=== PATIENT | male | born 1970 | race Caucasian/White ===

== ENCOUNTER 2019-05-24 11:39 | Emergency (ER) | payer OTHER, SELFPAY ==
--- NOTE | ~2019-05-24 | CT_ITS ---
EXAMINATION: CT abdomen pelvis w con DATE: 05/24/2019 13:46 INDICATION: Severe abdominal pain. Hematochezia. TECHNIQUE: Computed tomography (CT) of the abdomen and pelvis was performed with 100 cc Omnipaque 350 intravenous contrast. Automated exposure control and iterative reconstruction technique were employe d. Exam dose: 1472.06 mGy-cm total exam DLP. COMPARISON: None. FINDINGS: The lung bases are clear. Normal heart size. No pericardial or pleural effusion. Diffuse hepatic steatosis. Status post cholecystectomy. No bile duct or pancreatic duct dilatation. No hepatic, pancreatic, splenic, and adrenal space-occupying mass lesion is detected. The There is a small posterior upper pole right renal cyst or scar. No other renal mass lesion is evident . There is an approximately 2-3 mm nonobstructing left renal calculus. No other urinary tract calculus or hydroureteronephrosis. There is moderate diffuse thickening of the urinary bladder wall. There is moderate prostate enlargem ent and minimal calcification. There are small bilateral fat-containing inguinal hernias, larger on the left. Normal appendix. Minimal colonic diverticulosis. No CT evidence of diverticulitis. No bowel obstructi on. No intraperitoneal free air. Normal caliber of the abdominal aorta. No intraperitoneal or retroperitoneal or pelvic mass lesion or adenopathy or ascites. Diffuse idiopathic hyperostosis of the thoracic spine. No suspicious osteolytic or osteoblastic lesio ns. 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 IMPRESSION: Hepatic steatosis Status post cholecystectomy Small upper pole right renal cyst or scar 2-3 mm left renal nonobstructing calculus Minimal colonic diverticulosis Reviewed, dictated and finalized at [facility]. Reviewed, dictated and finalized at [facility]. 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
[2019-05-24 11:42] VITALS: BP 175/98; PULSE 65; RESP 16; TEMP 36.4; O2SAT 98
[2019-05-24 12:09] LABS: Basophils Percent Auto 0.3 % (0.2-1.2); Eosinophils Absolute Auto 0.1 K/mm3 (0-0.3); Eosinophils Percent Auto 2.1 % (0-4.4); Hematocrit 45.6 % (42.0-52.0); Hemoglobin 15.8 g/dL (14.0-18.0); Immature Granulocyte Absolute 0.02 K/mm3 (0.00-0.031); Immature Granulocyte Percent A 0.3 % (0-0.5); Lymphocytes Absolute Auto 2.04 K/mm3 (0.9-3.2); Lymphocytes Percent Auto 32.5 % (18.3-44.2); Mean Corpuscular HGB Conc 34.6 g/dl (32-36); Mean Corpuscular Volume 86.5 fl (80-100); Mean Platelet Volume 8.7 fl (7.4-10.4); Monocytes Absolute Auto 0.6 K/mm3 (0.1-0.6); Monocytes Percent Auto 8.8 % (2.6-8.5); Neutrophils Absolute Auto 3.5 K/mm3 (1.3-6.7); Platelet Count Result 226 k/mm3 (150-375); Red Blood Count 5.27 M/mm3 (4.6-6.20); Red Cell Distribution Width 12.3 % (11.5-14.5); White Blood Count 6.3 K/mm3 (4.5-10.0)
[2019-05-24 12:23] LABS: Alanine Aminotransferase 61 U/L (4-50); Albumin Level 4.7 g/dL (3.5-5.1); Alkaline Phosphatase 75 U/L (38-126); Aspartate Amino Transferase 50 U/L (17-59); Bilirubin,Total 0.9 mg/dL (0.2-1.3); Blood Urea Nitrogen 15 mg/dL (9-20); Calcium 9.6 mg/dL (8.4-10.2); Carbon Dioxide 26 mmol/L (22-30); Chloride 100 mmol/L (98-107); Estimated CRCL calculation 159 ml/min; Estimated Glomerular Filt Rate > 60; Glucose 96 mg/dL (75-110); INR 0.9; Partial Thromboplastin Time 26.4 SECONDS (22.3-36.8); Prothrombin Time 11.9 Seconds (11.1-14.7); Sodium 140 mmol/L (137-145)
[2019-05-24] MEDS: LACTATED RINGERS 1,000 ML 999 ML IV CONT (12:45)
[2019-05-24] MEDS: DICYCLOMINE HCL INJ 20 MG/2 ML VIAL IM (12:45)
--- NOTE | 2019-05-24 12:46 | ED.GIBLEED ---
HPI - GI Bleed General Chief complaint: GI Bleed Stated complaint: severe abd pains/ blood in stool Time Seen by Provider: 05/24/19 12:33 Source: patient and RN notes reviewed Mode of arrival: ambulatory Limitations: no limitations History of Present Illness HPI Narrative: A 48 y/o male presents to the ED with rectal bleeding beginning yesterday morning. He states that shortly after he ate breakfast yesterday he began to have severe, constant, rt ABD pain and bloody diarrhea. He reports that he then began to pass only blood and mucus, so he decided to come to the ED. He notes that his ABD pain has localized in his RLQ . He also notes that he was recently dx with bronchitis and finished a Z-pac roughly 2 weeks ago. He denies any fevers, chills, SOB, CP, N/V, and any other medical complaints at this time. MD complaint: gross hematochezia (with mucus) Onset (ago): day(s) (yesterday) Pain Consistency: constant Severity: severe Associated symptoms: abdominal pain (RLQ) Related Data Home Medications Medication Instructions Recorded Confirmed ezetimibe 10 mg tablet 10 mg PO DAILY 02/27/19 pravastatin 20 mg tablet 20 mg PO DAILY 02/27/19 Allergies Allergy/AdvReac Type Severity Reaction Status Date / Time No Known Allergies Allergy Verified 05/24/19 11:40 Review of Systems Review of Systems: All systems reviewed & are unremarkable except as noted in HPI and below Constitutional: Constitutional: Denies chills, Denies fatigue, Denies fever(s), Denies headache(s) and Denies night sweats Eyes: Eyes: Denies change in vision, Denies loss of vision and Denies other visual disturbances ENT: Denies headache(s), Denies hoarseness, Denies epistaxis, Denies nasal congestion and Denies sore throat Cardiovascular: Cardiovascular: Denies chest pain, Denies leg edema, Denies palpitations and Denies dyspnea Respiratory: Respiratory: Denies cough, Denies dyspnea and Denies wheezing Gastrointestinal: Gastrointestinal: Reports abdominal pain (RLQ), Reports hematochezia (with mucus), Reports diarrhea, Denies nausea and Denies vomiting Genitourinary: Genitourinary: Denies hematuria, Denies dysuria and Denies urinary frequency Musculoskeletal: Musculoskeletal: Denies abnormal gait, Denies deformity, Denies joint swelling, Denies muscle weakness and Denies numbness Integumentary/Breasts: Skin/Breast: Denies rash, Denies unusual bruising and Denies wounds Neurologic: Denies abnormal gait, Denies headache(s), Denies focal weakness, Denies loss of vision and Denies numbness Psychiatric: Psychiatric: Reports no additional psychiatric complaints Endocrine: Endocrine: Denies fatigue and Denies palpitations Hematologic/Lymphatic: Hematologic/Lymphatic: Denies easy bleeding and Denies easy bruising Allergic/Immunologic: Allergic/Immunologic: Denies wheezing PMFSH Past Medical History Medical History (Updated 05/24/19 @ 15:17 by Prashant Pickard MD) Arthritis Bronchitis Elbow fracture, left History of Fonseca's esophagus History of kidney stones Hypercholesteremia IBS (irritable bowel syndrome) IFG (impaired fasting glucose) Right wrist fracture Surgical History Surgical History (Updated 05/24/19 @ 14:26 by Ronan Prather) History of cholecystectomy History of tonsillectomy Family History Family History Mother Family history of mental disorder Family history of elevated blood lipids Father Family history of elevated blood lipids Family history of malignant neoplasm Family history of human immunodeficiency virus infection Other Cerebrovascular accident Social History Social History Smoking status: Former smoker Tobacco type: cigarettes Second hand tobacco smoke exposure: No Alcohol intake: current Drinks per week: 1 Substance use: never Substance use type: does not use Gender identity (if verbalized by the patient): Male
[2019-05-24 12:52] LABS: Add Urine Microscopic? YES; Appearance Urine Clear (Clear); Bilirubin Urine Negative (Negative); Blood Urine Negative (Negative); Color Urine Yellow (Yellow); Glucose Urine UA Negative (Negative); Ketones Urine Negative (Negative); Leukocyte Esterase Ur Negative LEU/UL (Negative); Mucus Urine Rare /lpf; Nitrate Urine Negative (Negative); Protein Urine Negative (Negative); Urobilinogen Urine Negative mg/dL (<2.0); WBC Urine 0-3 /hpf
[2019-05-24 13:30] VITALS: PULSE 64; RESP 25; O2SAT 98
[2019-05-24 14:15] VITALS: PULSE 68; RESP 17; O2SAT 98
[2019-05-24 14:17] VITALS: BP 134/67; PULSE 61; RESP 16; O2SAT 96
[2019-05-24 15:21] VITALS: PULSE 59; RESP 18; O2SAT 94
[2019-05-24 15:30] VITALS: PULSE 73; RESP 13; O2SAT 94
--- NOTE | 2019-05-27 19:24 | PC.NURSE ---
lr bolus infused at 1345 on 05/24/19
== END 2019-05-24 15:51 | disposition home or self-care (01) ==
PROVIDERS: Emergency Medicine; Emergency Provider Emergency Medicine; PCP Family Medicine
DX: R19.7 Diarrhea, unspecified (principal); K92.1 Melena; M19.90 Unspecified osteoarthritis, unspecified site; Z87.442 Personal history of urinary calculi; E78.00 Pure hypercholesterolemia, unspecified; Z87.891 Personal history of nicotine dependence
CPT/HCPCS: 36415; 74177; 80053; 81001; 85025; 85610; 85730; 86850; 86900; 86901; 96360; 96372; 99284; J0500; J7120; Q9967

== ENCOUNTER 2019-06-05 02:53 | Day surgery (SDC) | payer OTHER, SELFPAY ==
[2019-05-29 15:05] VITALS: BMI 35.8
[2019-06-05 07:00] VITALS: BP 132/79; PULSE 66; RESP 20; TEMP 36.3; O2SAT 95
--- NOTE | 2019-06-05 07:45 | WPDANESEPPF ---
Anes - Initial Pre Proc Eval Procedure: Operation Date: 06/05/19 08:00 Proposed Procedures p Esophagogastroduodenoscopy & Colonoscopy - Prashant Herrera MD Date/Time: 06/05/19 07:45 Surgeon: Prashant Herrera MD Pre Op Diagnosis: Rectal Bleeding/ Lower GI Bleeding Patient Data Age: 48 Gender: M Height: 6 ft 3 in Weight: 127.8 kg Last Vital Signs Temp 36.3 C L 06/05/19 07:00 Pulse 66 06/05/19 07:00 Resp 20 06/05/19 07:00 BP 132/79 06/05/19 07:00 Pulse Ox 95 06/05/19 07:00 Allergies Allergy/AdvReac Type Severity Reaction Status Date / Time No Known Allergies Allergy Verified 06/05/19 06:58 Home Medications Medication Instructions Recorded Confirmed Type ezetimibe 10 mg tablet 10 mg PO DAILY 02/27/19 05/29/19 History pravastatin 20 mg tablet 20 mg PO DAILY 02/27/19 05/29/19 History celecoxib 200 mg capsule 200 mg PO DAILY PRN #90 cap 03/02/19 05/29/19 Rx esomeprazole magnesium 40 mg 40 mg PO DAILY #90 cap 03/30/19 05/29/19 Rx capsule,delayed release ascorbic acid (vitamin C) [Vitamin 1 g PO DAILY 05/29/19 05/29/19 History C] multivit with min-folic acid 0.4 mg PO DAILY 05/29/19 05/29/19 History [Adult One Daily Multivitamin] psyllium husk [Daily Fiber] 0.4 g PO DAILY 05/29/19 05/29/19 History Patient hx anesthesia problems: none Family hx anesthesia problems: none PMFSH Past Medical History Medical History Arthritis Bronchitis Elbow fracture, left History of Fonseca's esophagus History of kidney stones Hypercholesteremia IBS (irritable bowel syndrome) IFG (impaired fasting glucose) Right wrist fracture Surgical History Surgical History History of cholecystectomy History of tonsillectomy Family History Family History Mother Family history of mental disorder Family history of elevated blood lipids Father Family history of elevated blood lipids Family history of malignant neoplasm Family history of human immunodeficiency virus infection Other Cerebrovascular accident Social History Social History Smoking status: Former smoker Tobacco type: cigarettes Second hand tobacco smoke exposure: No Alcohol intake: current Drinks per week: 1 Substance use: never Substance use type: does not use Gender identity (if verbalized by the patient): Male Anes - Eval Final PreProcedure Day of Procedure 06/05/19 07:45 Patient weight: obese Heart: regular rate and rhythm Lungs: clear to auscultation Airway: Mallampati scale class II Neurological: alert and oriented Last oral intake: >/= 8 hours ASA classification: II Emergent: no Anesthetic plan: proceed Anesthesia type and monitoring: general GIVS and standard monitoring Informed Consent: The patient's anesthetic plan and its attendant risks and benefits were discussed with the patient/family/POA. Questions were solicited and answers provided to the satisfaction of the patient/family/POA.
[2019-06-05] MEDS: BENZOCAINE (*SP) 60 ML SPRAY CAN (HURRICAINE) 1 SPRAY MUCOUS MEM (08:23)
--- NOTE | 2019-06-05 08:30 | WPDGICN ---
Assessment and Plan Additional Plan This is a 48-year-old white male patient who presents for GI endoscopy. Patient seen at the request of Dr. Vignesh Montague. Patient complains of ongoing right-sided abdominal pain. Patient gives a history of cholecystectomy in 2007 at [facility]. Apparently had an inflamed gallbladder. Since that time he has ongoing right-sided abdominal discomfort. Etiology unclear. He was identified as having Fonseca's esophagus several years ago. No signs of inflammation more evident. He has been maintained on Nexium 40 mg p.o. daily subsequently. Patient denies any bleeding. He denies any dysphagia. His weight has remained stable. Three weeks ago patient had episode of bright red blood per rectum associated with intense abdominal cramping. He went to the emergency room for treatment. Was treated with antispasmodic agents. These bleeding only occurred on 1 day. His cramping improved after several days. He continues to have right-sided abdominal discomfort similar for many years. Past medical history is significant for kidney stones. Irritable bowel syndrome. Fonseca's esophagus. Hypercholesterolemia. Current medications include Nexium 40 mg p.o. daily. Celecoxib. Ezetimibe, pravastatin, Metamucil, multiple vitamins, He has no known drug allergies. Physical exam reveals him to be alert. Vital signs stable. HEENT exam unremarkable. Lungs are clear to auscultation and percussion. Heart is without murmur or extra sounds. Abdominal exam bowel sounds are present soft nontender with no organomegaly. Digital external rectal exam unremarkable. Impression 1. Fonseca's esophagus. Clinically stable. Plan is to continue proton pump inhibitor. Anti-reflux measures. EGD every 3 years is advised. 2. Chronic right-sided abdominal pain. Etiology unclear. Suspicious for irritable bowel syndrome. Plan is to continue fiber supplements. Antispasmodics may be of some benefit intermittently. 3. Status post cholecystectomy. Performed 2007 at [facility]. 4. Rectal bleeding. Now resolved. This prompted presentation to the emergency room. Will be evaluated by colonoscopy. 5. Irritable bowel syndrome. Suspicious this accounts for his ongoing symptoms plan is to continue fiber and antispasmodics. GI Consult Note Consult date/time: 06/05/19 08:30 HPI: Giuseppe Gonzalez is a 48 year old male [facility] Past Medical History Medical History Arthritis Bronchitis Elbow fracture, left History of Fonseca's esophagus History of kidney stones Hypercholesteremia IBS (irritable bowel syndrome) IFG (impaired fasting glucose) Right wrist fracture Surgical History Surgical History History of cholecystectomy History of tonsillectomy Family History Family History Mother Family history of mental disorder Family history of elevated blood lipids Father Family history of elevated blood lipids Family history of malignant neoplasm Family history of human immunodeficiency virus infection Other Cerebrovascular accident Social History Social History Smoking status: Former smoker Tobacco type: cigarettes Second hand tobacco smoke exposure: No Alcohol intake: current Drinks per week: 1 Substance use: never Substance use type: does not use Gender identity (if verbalized by the patient): Male Meds Home Medications and Allergies Home Medications Medication Instructions Recorded Confirmed Type ezetimibe 10 mg tablet 10 mg PO DAILY 02/27/19 05/29/19 History pravastatin 20 mg tablet 20 mg PO DAILY 02/27/19 05/29/19 History celecoxib 200 mg capsule 200 mg PO DAILY PRN #90 cap 03/02/19 05/29/19 Rx esomeprazole magnesium 40 mg 40 mg PO DAILY #90 cap 03/30/19 05/29/19 Rx capsule,delayed releas
[2019-06-05 08:56] VITALS: BP 115/63; PULSE 71; RESP 20; O2SAT 94
[2019-06-05] MEDS: LACTATED RINGERS 1,000 ML 150 ML IV CONT (09:00)
[2019-06-05 09:06] VITALS: BP 128/84; PULSE 67; RESP 18; O2SAT 91
[2019-06-05 09:16] VITALS: BP 127/76; PULSE 68; RESP 18; O2SAT 93
== END 2019-06-05 09:33 | disposition home or self-care (01) ==
PROVIDERS: PCP Family Medicine; Visit Provider Internal Medicine Gastroenterology
PROC: 0DJ08ZZ Inspection of Upper Intestinal Tract, Via Natural or Artificial Opening Endoscopic (ICD-10-PCS; CPT 43235; principal; 2019-06-05 08:00)
DX: K22.70 Barrett's esophagus without dysplasia (principal); D12.5 Benign neoplasm of sigmoid colon; K57.30 Diverticulosis of large intestine without perforation or abscess without bleeding; K64.8 Other hemorrhoids; K58.9 Irritable bowel syndrome, unspecified; E78.00 Pure hypercholesterolemia, unspecified; Z87.891 Personal history of nicotine dependence
CPT/HCPCS: 45385; 43239; 87081; 88305; 88313; J2704; J7120

== ENCOUNTER 2021-04-24 17:38 | Outpatient (CLI) | payer OTHER, SELFPAY ==
--- NOTE | ~2021-04-24 | XR_ITS ---
EXAMINATION: XR_CERV2-3V_CR DATE: 04/24/2021 18:00 INDICATION: Cervical radiculopathy. TECHNIQUE: 3 views of cervical spine were obtained. COMPARISON: None. FINDINGS: Bone alignment is normal. Vertebral body heights are normal. There is moderately decreased disc height at C6-C7. There is multilevel facet joint osteoarthritis, severe on the right at C4-C5. T here is mild central canal stenosis at C6-C7. No prevertebral soft tissue swelling. IMPRESSION: 1. Moderate cervical spondylosis. Reviewed, dictated and finalized at location [facility]. 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
== END 2021-04-24 17:39 | disposition home or self-care (01) ==
PROVIDERS: PCP Family Medicine; Visit Provider Family Medicine
DX: M47.22 Other spondylosis with radiculopathy, cervical region (principal)
CPT/HCPCS: 72040

== ENCOUNTER 2021-05-12 13:43 | Outpatient (CLI) | payer OTHER, SELFPAY ==
--- NOTE | ~2021-05-12 | MR_ITS ---
EXAMINATION: MR cervical spine wo con DATE: 05/12/2021 15:04 INDICATION: Cervical radiculopathy. TECHNIQUE: Magnetic resonance imaging (MRI) of the cervical spine was performed without intravenous c ontrast. Sequences included sagittal T2-weighted FSE, sagittal T2-weighted FS FSE, sagittal T1-weight ed FSE, axial MERGE, and axial T2-weighted FSE. COMPARISON: Cervical spine radiographs 04/24/2021 FINDINGS: There is 4 degrees levocurvature of cervicothoracic spine. Vertebral body heights are rajendra l. Intervertebral disc heights are normal. The spinal cord signal intensity is normal. The following disc levels are specifically discussed: C2-C3: The disc does not extend beyond the endplate margin. There is no uncovertebral joint osteoarth ritis. There is moderate bilateral facet joint osteoarthritis. There is no neural foraminal stenosis. There is no central canal stenosis. C3-C4: There is a central extrusion. There is mild bilateral uncovertebral joint osteoarthritis. Ther e is moderate bilateral facet joint osteoarthritis. There is mild left neural foraminal stenosis. The re is mild central canal stenosis with ventral indentation of the spinal cord. C4-C5: The disc is bulging. There is moderate bilateral uncovertebral joint osteoarthritis. There is severe right and moderate left facet joint osteoarthritis. There is moderate bilateral neural foramin al stenosis. There is mild central canal stenosis. C5-C6: The disc is bulging. There is mild right and moderate left uncovertebral joint osteoarthritis. There is severe bilateral facet joint osteoarthritis. There is mild right and moderate left neural f oraminal stenosis. There is mild central canal stenosis. C6-C7: The disc is bulging. There is severe bilateral uncovertebral joint osteoarthritis. There is mo derate right and severe left facet joint osteoarthritis. There is moderate bilateral neural foraminal stenosis. There is mild central canal stenosis. C7-T1: There is a left central extrusion. There is no uncovertebral joint osteoarthritis. There is mi ld bilateral facet joint osteoarthritis. There is mild bilateral neural foraminal stenosis. There is no central canal stenosis. IMPRESSION: 1. Moderate cervical spondylosis. Reviewed, dictated and finalized at location [facility]. 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
== END 2021-05-12 13:44 | disposition home or self-care (01) ==
PROVIDERS: PCP Family Medicine; Visit Provider Family Medicine
DX: M47.812 Spondylosis without myelopathy or radiculopathy, cervical region (principal)
CPT/HCPCS: 72141

== ENCOUNTER 2022-06-05 16:36 | Emergency (ER) | payer OTHER, SELFPAY ==
[2022-06-05 16:44] VITALS: BP 145/89; PULSE 70; RESP 16; TEMP 36.3; O2SAT 98
--- NOTE | 2022-06-05 16:57 | ED.URI ---
HPI - URI/Sore Throat General Stated Complaint: Cough,Congestion Time Seen by Provider: 06/05/22 17:00 Source: patient Mode of arrival: ambulatory Limitations: no limitations History of Present Illness HPI Narrative: Giuseppe is a 51-year-old male patient presenting to the clinic today with complaints of cough and congestion x6 days. He denies any any shortness of breath or chest pain. States he is having a lot of drainage going the back of his throat however he denies having a sore throat at this time. He denies any fever chills MD elicited complaint: cough, rhinorrhea and nasal congestion Related Data Home Medications Medication Instructions Recorded Confirmed ascorbic acid (vitamin C) 1,000 mg 1 g PO DAILY 05/29/19 05/14/22 tablet (Vitamin C) multivitamin with minerals-folic 0.4 mg PO DAILY 05/29/19 05/14/22 acid 0.4 mg tablet (Adult One Daily Multivitamin) psyllium husk 0.4 gram capsule 0.4 g PO DAILY 05/29/19 05/14/22 (Daily Fiber) Allergies Allergy/AdvReac Type Severity Reaction Status Date / Time No Known Allergies Allergy Verified 05/14/22 16:30 Review of Systems Review of Systems: Pertinent positives per HPI. Patient denies any fever, chills, rash, headache, visual changes, dizziness, shortness of breath, chest pain, palpitations, nausea, vomiting, diarrhea, constipation, abdominal pain, or any urinary issues. [facility] Past Medical History Medical History Arthritis Bronchitis Elbow fracture, left History of Fonseca's esophagus History of kidney stones Hypercholesteremia IBS (irritable bowel syndrome) IFG (impaired fasting glucose) Right wrist fracture Surgical History Surgical History History of cholecystectomy History of tonsillectomy Family History Family History Mother Family history of mental disorder Family history of elevated blood lipids Father Family history of elevated blood lipids Family history of malignant neoplasm Family history of human immunodeficiency virus infection Other Cerebrovascular accident Social History Social History Smoking status: Never smoker Tobacco type: cigarettes Second hand tobacco smoke exposure: No Alcohol intake: current Drinks per week: 1 Alcohol use details: occasionally Substance use: never Substance use type: does not use Living arrangements: with family Occupation/Education: occupation Gender identity (if verbalized by the patient): Male Comments At the time of my signature, I reviewed and agree with the nursing past medical, surgical, social, and family history. There is no relevant family history pertinent to the patient complaint. Exam Narrative: General: Well-developed, well nourished, in no apparent distress Head: Normocephalic, atraumatic Eyes: Pupils equally round and reactive to light bilaterally, EOM intact, sclera and conjunctive clear, no discharge, lids normal Ears: TMs intact and clear, ear canals clear, no drainage, grossly hearing normal. Nose: Nares patent, clear nasal discharge, moderate inflammation, no sinus tenderness. Mouth: Oral pharynx without lesions or masses, good dentition, MMM. Postnasal drip Neck: Supple, trachea midline, no enlargement of anterior or posterior cervical nodes, no thyroid masses or goiter palpable. Cardio: Regular rate and rhythm, s1 and s2 normal, no murmur appreciated. Resp: Lung sounds mildly coarse, no rhonchi, rales, wheezing or rubs Course Course Emergency Course: Portions of this record may have been created with voice recognition software. Level of Care: Express Care Visit Vital Signs Vital signs: Vital Signs Temperature 36.3 C L 06/05/22 16:44 Pulse Rate 70 06/05/22 16:44 Respiratory Rate 16 06/05/22 16:44 Blo
== END 2022-06-05 17:01 | disposition home or self-care (01) ==
PROVIDERS: Emergency Provider Nurse Practitioner Family; PCP Family Medicine
DX: J06.9 Acute upper respiratory infection, unspecified (principal); R09.82 Postnasal drip; J40 Bronchitis, not specified as acute or chronic; M19.90 Unspecified osteoarthritis, unspecified site; K22.70 Barrett's esophagus without dysplasia; E78.00 Pure hypercholesterolemia, unspecified
CPT/HCPCS: 99213; G0463

== ENCOUNTER → 2023-05-21 16:21 | Outpatient (CLI) | payer OTHER, SELFPAY ==
--- NOTE | ~2023-05-21 | XR_ITS ---
EXAM: XR shoulder RT min 2V DATE: 05/21/2023 16:42 HISTORY: M25.511 - Pain in right shoulder . COMPARISON: None available. FINDINGS: Normal mineralization. No fracture or dislocation. No lytic or blastic lesion. Moderate AC joint and mild glenohumeral joint degenerative change. No erosion or periosteal change. Soft tissues within normal limits. IMPRESSION: Polyarticular right shoulder osteoarthritis. Reviewed, dictated and finalized at location K. 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
== END ==
PROVIDERS: PCP Family Medicine; Visit Provider Family Medicine
DX: M19.011 Primary osteoarthritis, right shoulder (principal)
CPT/HCPCS: 73030

== ENCOUNTER 2024-07-24 00:50 | Day surgery (SDC) | payer OTHER, SELFPAY ==
[2024-07-21 10:49] VITALS: BMI 34.4
--- OUTSIDE RECORDS SUMMARY | 2024-07-24 00:52 | XMS_ITS | Clinical Summary ---
Author Organization [facility] [employer] Address [address] [place] [address] Care Team Providers Care Manager Regulatory Name Role Phone Vignesh Vargas MD Primary Care Provider [phone] Source Comments [facility],non-owned Affiliates and Associated Physician Practices is amultiple site organization consisting of ambulatory clinics and hospital sitesin [place], [place], [place] and [place]. This disclosure is being madepursuant to the Care Everywhere program and may not contain all information available regarding this patient. Last updated 18.[facility] [employer] Allergies No known active allergies Immunizations Name Administration Dates Next Due INFLUENZA VACCINE, QUADR. (F LUZONE; FLULAVAL; FLUARIX; AFLURIA QUADRIVALENT; 6MO+), 0.5 ML (IIV4) 02/14/2020 Social History Tobacco Use Types Packs/Day Years Used Date Smoking Tobacco: Never Assessed Sex and Gender Information Value Date Recorded Sex Assigned at Not on file Gender Identity Not on file Sexual Orientation Not on file Plan of Treatment Health Maintenance Due Date Last Done Comments COLOGUARD (AGES 45-75) - COL ON CA SCREENING 1969 COLON MONITORING 1969 COLONOSCOPY - COLON CA SCREENING 1969 CT COLONOGRAPHY - COLON CA SCREENING 1969 Colorectal Cancer Screening 1969 FIT - COLON CA SCREENING 1969 FLEX SIG - COLON CA SCREENING 1969 LIPID TESTING 1969 HIV SCREENING 1984 HEPATITIS C SCREENING 12/10/1987 DTAP/TDAP/TD VACCINES (1 - Tdap) 1988 HEPATITIS B VACCINE (1 of 3 - 19+ 3-dose series) 1988 PNEUMOCOCCAL VACCINE 50+ (1 of 1 - PCV) 12/15/2019 ZOSTER VACCINE (1 of 2) 12/15/2019 COVID-19 VACCINE ( - 2023-2 5 season) 2023 DEPRESSION SCREENING 04/15/2024 INFLUENZA VACCINE (Season Ended) 2024 02/14/20 20 HIB VACCINE Aged Out No longer eligi ble based on patient's age to complete this topic HPV VACCINE Aged Out No longer eligi ble based on patient's age to complete this topic MENINGOCOCCAL (Group B) VACC INE SHARED DECISION-MAKING Aged Out No longer eligibl e based on patient's age to complete this topic MENINGOCOCCAL GROUPS A/C/Y/W VACCINE Aged Out No longer eligible b ased on patient's age to complete this topic PNEUMOCOCCAL VACCINE Aged Out No long er eligible based on patient's age to complete this topic Care Teams Manager Regulatory Relationship Specialty Start Date End Date Vignesh Vargas MD [address] [place] [address] PCP - General 06/08/19
--- OUTSIDE RECORDS SUMMARY | 2024-07-24 00:52 | XMS_ITS | Clinical Summary ---
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 16 g 11/06/2019 Active azithromycin (ZITHROMAX Z-JAROD) 250 MG tablet Take 2 tablets today then 1 tablet daily for 4 days. 6 tablet 11/06/2019 Active benzonatate 200 MG capsule Take 1 capsule (200 mg total) by mouth 3 (three) times daily as needed. 30 capsule 11/06/2019 Active Family History Medical History Relation Comments Cancer Father Cancer Maternal Grandfather Cancer Maternal Grandmother Mental Health Mother Cancer Paternal Grandfather Relation Status Comments Father Maternal Grandfather Maternal Grandmother Mother Paternal Grandfather Social History Tobacco Use Types Packs/Day Years Used Date Smoking Tobacco: Former Cigarettes Smokeless Tobacco: Current Chew Alcohol Use Standard Drinks/Week Comments Yes 0 (1 standard drink = 0.6 oz pur e alcohol) occasionally Sex and Gender Information Value Date Recorded Sex Assigned at Not on file Legal Sex Male 7:07 PM CDT Gender Identity Not on file Sexual Orientation Not on file Last Filed Vital Signs Vital Sign Reading Time Taken Comments Blood Pressure 134/80 11/06/2019 12:54 PM CDT Pulse 85 11/06/2019 12:54 PM CDT Temperature 38.2 C (100.8 F) 11/06/2019 12:54 PM CDT Respiratory Rate 20 11/06/2019 12:54 PM CDT Oxygen Saturation 96% 11/06/2019 12:54 PM CDT Inhaled Oxygen Concentration - - Weight 129.3 kg (285 lb) 11/06/2019 12:54 PM CDT Height 190.5 cm (6' 3 ) 11/06/2019 12:54 PM CDT Body Mass Index 35.62 11/06/2019 12:54 PM CDT Plan of Treatment Health Maintenance Due Date Last Done Comments Colorectal Cancer Screening Colonoscopy (10 Years) 1969 Annual Physical 1972 Hepatitis C 12/15/1987 DTaP, Tdap and Td Vaccines ( 1 - Tdap) 1988 Hepatitis B Vaccines (1 of 3 - 19+ 3-dose series) 1988 Zoster Vaccines (1 of 2) 12/15/2019 COVID-19 Vaccine ( - 2023-2 5 season) 2023 Meningococcal B Vaccine Aged Out No l onger eligible based on patient's age to complete this topic Meningococcal Vaccine Aged Out No jarett vern eligible based on patient's age to complete this topic Pneumococcal Vaccine: Pediat rics (0 to 5 Years) and At-Risk Patients (6 to 64 Years) Aged Out No longer eligible b ased on patient's age to complete this topic RSV Immunizations Under 20 Months Aged Out No longer eligible based on patient's age to complete this topic Insurance Care Teams Lift Slab Operator Relationship Specialty Start Date End Date Vignesh Vargas MD [address] [place] [id number] PCP - General FAMILY PRACTICE 11/06/19
--- OUTSIDE RECORDS SUMMARY | 2024-07-24 00:52 | XMS_ITS | Continuity of Care Document ---
Author Organization [facility] Address [address] [place] [address] Phone Care Team Providers Care Braille Proofreader Name Role Phone Conversion MD, Doctor Unavailable Unavailabl e Allergies, Adverse Reactions, Alerts Substance Reaction Status Criticality Weieojj-WEL-VuI Reductase Inhibitors MSkel Acti ve No Information rosuvastatin MSkel Active No Information Medications Medication Instructions Dosage Effective Dates (start - stop) Status Comments WELCHOL 625 MG TABLET 3 BID - Acti ve ADULT LOW STRENGTH 81MG TABS 1 QD-daily - Active ACIPHEX 20MG TABS 1 QD-daily - Active FIBERCON 625MG TABS 1 BID - Active MULTIVITAMIN TABS 1 QD - Active CHARBEL 180 MG TABLET 1 QD - Acti ve NAPROSYN 500MG TABS 1 BID - Active HYOSCYAMINE SULFATE 0.125MG TA 1 TID - Active WELCHOL 625MG TABS 2 BID No Longer Active ZETIA 10MG TABS 1 QD-daily - No Longer Active PRAVACHOL 20MG TABS 1 QHS No Longer Active CRESTOR 20MG TABS 1 QD No Longer Active RANITIDINE 150 MG CAPSULE 1 BID - No Longer Active CHARBEL 180MG TABS 1 QD No Longer Active RANITIDINE HCL 75MG TABS 2 BID - No Longer Active Advance Directives Directive Yes / No Effective Date File Name No Information Encounters Encounter Description Practice Location Reason(s) For Visit Diagnoses Date Provider Providers Copied on Encounter [facility], [address], [place], [place], [address] , tel: [phone] [place] No Information 201 1 Conversion Doctor. [facility] [place], [place], [facility], . [facility], [address], [place], [place], [address] , tel: [phone] [place] IRRITABLE BOWEL SYNDROMELONG-TERM USE MEDS NECESOPHAGEAL REFLUXMIXED HYPERLIPIDEMIAJOINT PAIN-UP/ARM [address] [place], [place], [id number]. tel:[phone] [facility], [address], [place], [place], [address] , tel: [phone] [place] GENERAL OSTEOARTHROSIS [address] [place], [place], [id number]. tel:[phone] [facility], [address], [place], [place], [address] , tel: [phone] [place] ADVERSE EFF-WORK ENVIRONCHEST PAIN NOSPLEURISY W/O EFFUS OR TB [address] [place], [place], [id number]. tel:[phone] [facility], [address], [place], [place], [address] , tel: [phone] [place] No Information 4-200 6 Conversion Doctor. [facility] [place], [address], . [facility], [address], [place], [place], [address] , tel: [phone] [place] MYALGIA AND MYOSITIS NOS 3-[address] [place], [place], [address]. tel:[phone] [facility], [address], [place], [place], [address] , tel: [phone] [facility] No Information 1 6 Conversion Doctor. [address], [place], [address], [place]. [facility], [address], [place], [place], [address] , tel: [phone] [facility] OTH ADV EFF MED/BIO SUB [address] [place], [place], [address]. tel:[phone] [facility], [address], [place], [place], [address] , tel: [phone] [facility] ALLERGIC RHINITIS NOS 4-[address] [place], [place], [id number]. tel:[phone] [facility], [address], [place], [place], [address] , tel: [phone] [facility] ROUTINE MEDICAL EXAMSCREEN LIPOID DISORDERS [address] [place], [place], [address]. tel:[phone] [facility], [address], [place], [place], [address] , tel: [phone] [facility] BACKACHE NOS Jul- 6[address] [place], [place], [address]. tel:[phone] Family History Family Member Type Diagnosis Age At Onset No Information Payers Payer name Insurance type Covered alliance party ID Authoriza tion(s) No Information Social History Type Description Quantity Date Captured Comments Sex Male Smoking Status No Information Chief Complaint And Reason For Visit No Information Reason For Referral Reason For Referral No Information History Of Present Illness Encounter Date Complaint History Of Prese nt Illness No Information Functional Status Date Functional Assessmen t No Information Instructions Date Instruction Additional Infor mation No Information Assessments Type Assessment Date No Information Patient Care Teams Name Effective Dates (start - stop) Status Members No Information
[2024-07-24 10:15] VITALS: BP 131/89; PULSE 61; RESP 18; TEMP 36.6; O2SAT 98
[2024-07-24] MEDS: LACTATED RINGERS 1,000 ML 150 ML IV CONT (10:22)
--- NOTE | 2024-07-24 10:35 | P.PNAN_ITS ---
Anes - Initial Pre Proc Eval Procedure: Operation Date: 07/24/24 14:45 Proposed Procedures p Esophagogastroduodenoscopy - Travis Newberry MD Date/Time: 07/24/24 10:35 Surgeon: Travis Newberry MD Pre Op Diagnosis: Fonseca's Patient Data Age: 53 Gender: M Height: 1.91 m Weight: 122.7 kg Last Vital Signs Temp 97.9 F 07/24/24 10:15 Pulse 61 07/24/24 10:15 Resp 18 07/24/24 10:15 BP 131/89 07/24/24 10:15 Pulse Ox 98 07/24/24 10:15 O2 Del Method Room Air 07/24/24 10:15 Allergies Allergy/AdvReac Type Severity Reaction Status Date / Time No Known Allergies Allergy Verified 07/24/24 10:14 Home Medications ?Medication ?Instructions ?Recorded ?Confirmed ?Type ezetimibe 10 mg tablet See Rx Instructions .Route 11/22/23 07/24/24 Rx .COMPLEX #90 tabs dicyclomine 10 mg capsule 10 mg PO BID PRN abdominal pain 05/25/24 07/21/24 Rx #60 caps hydrocortisone 2.5 % topical cream 1 applic RECTAL DAILY PRN 05/25/24 07/21/24 Rx with perineal applicator hemorrhoids #30 grams (Proctozone-HC) esomeprazole magnesium 40 mg See Rx Instructions .Route 05/26/24 07/24/24 Rx capsule,delayed release .COMPLEX #90 caps pravastatin 20 mg tablet 20 mg PO DAILY #90 tabs 06/25/24 07/24/24 Rx celecoxib 200 mg capsule 200 mg PO DAILY 07/21/24 07/24/24 History Patient hx anesthesia problems: none Family hx anesthesia problems: none Results Review: All pre-operative results and documents have been reviewed as part of the pre- operative evaluation. [facility] Past Medical History Medical History Bronchitis Right wrist fracture Elbow fracture, left Arthritis History of kidney stones History of Fonseca's esophagus IBS (irritable bowel syndrome) Hypercholesteremia IFG (impaired fasting glucose) Surgical History Surgical History History of cholecystectomy History of tonsillectomy Family History Family History Mother Family history of mental disorder Family history of elevated blood lipids Father Family history of elevated blood lipids Family history of malignant neoplasm Family history of human immunodeficiency virus infection Other Cerebrovascular accident Social History Social History Social History: Smoking status: Never smoker Tobacco type: cigarettes Second hand tobacco smoke exposure: No Alcohol intake: never Alcohol use details: occasionally Substance use: never Substance use type: does not use Do You Feel Safe in your Home?: Yes Lack of Transportation: No Lack of Food: Never True Current Housing: I Have Housing Concerned About Future Housing: No Difficulty Paying Gas/Electric Bills: No Difficulty Paying for Meds: No Currently Unemployed: No Education: Don't Know Difficulty w/ Childcare or Family Care: No Living arrangements: with family Occupation/Education: occupation Gender identity (if verbalized by the patient): Male Sexual Orientation (if Verbalized by the Patient): Straight or Heterosexual Spiritual care concerns: No Anes - Eval Final PreProcedure Day of Procedure 07/24/24 10:35 Patient weight: normal Heart: regular rate and rhythm Lungs: clear to auscultation Airway: Mallampati scale class II Neurological: alert and oriented Last oral intake: >/= 8 hours ASA classification: II Emergent: no Anesthetic plan: proceed Anesthesia type and monitoring: general GIVS and standard monitoring Results Review: All pre-operative results and documents have been reviewed as part of the pre- operative evaluation. Informed Consent: The patient's anesthetic plan and its attendant risks and benefits were discussed with the patient/family/POA. Questions were solicited and answers provided to the satisfaction of the patient/family/POA.
--- NOTE | 2024-07-24 10:52 | PM.HPGS ---
History of Present Illness History of Present Illness Consent: Risks, benefits, and alternatives have been discussed and questions answered. Patient agrees to proceed with procedure. Chief complaint: Dutton's Narrative: Giuseppe Gonzalez is a 53 year old male with gerd on ppi daily, last egd 2019 with dutton's Review of Systems Review of Systems: All systems reviewed & are unremarkable except as noted in HPI and below PMFSH Past Medical History Medical History Bronchitis Right wrist fracture Elbow fracture, left Arthritis History of kidney stones History of Dutton's esophagus IBS (irritable bowel syndrome) Hypercholesteremia IFG (impaired fasting glucose) Surgical History Surgical History History of cholecystectomy History of tonsillectomy Family History Family History Mother Family history of mental disorder Family history of elevated blood lipids Father Family history of elevated blood lipids Family history of malignant neoplasm Family history of human immunodeficiency virus infection Other Cerebrovascular accident Social History Social History Social History: Smoking status: Never smoker Tobacco type: cigarettes Second hand tobacco smoke exposure: No Alcohol intake: never Alcohol use details: occasionally Substance use: never Substance use type: does not use Do You Feel Safe in your Home?: Yes Lack of Transportation: No Lack of Food: Never True Current Housing: I Have Housing Concerned About Future Housing: No Difficulty Paying Gas/Electric Bills: No Difficulty Paying for Meds: No Currently Unemployed: No Education: Don't Know Difficulty w/ Childcare or Family Care: No Living arrangements: with family Occupation/Education: occupation Gender identity (if verbalized by the patient): Male Sexual Orientation (if Verbalized by the Patient): Straight or Heterosexual Spiritual care concerns: No Meds Home Medications and Allergies Home Medications ?Medication ?Instructions ?Recorded ?Confirmed ?Type ezetimibe 10 mg tablet See Rx Instructions .Route 11/22/23 07/24/24 Rx .COMPLEX #90 tabs dicyclomine 10 mg capsule 10 mg PO BID PRN abdominal pain 05/25/24 07/21/24 Rx #60 caps hydrocortisone 2.5 % topical cream 1 applic RECTAL DAILY PRN 05/25/24 07/21/24 Rx with perineal applicator hemorrhoids #30 grams (Proctozone-HC) esomeprazole magnesium 40 mg See Rx Instructions .Route 05/26/24 07/24/24 Rx capsule,delayed release .COMPLEX #90 caps pravastatin 20 mg tablet 20 mg PO DAILY #90 tabs 06/25/24 07/24/24 Rx celecoxib 200 mg capsule 200 mg PO DAILY 07/21/24 07/24/24 History Allergies Allergy/AdvReac Type Severity Reaction Status Date / Time No Known Allergies Allergy Verified 07/24/24 10:14 Vital Signs Vital Signs - 24 hr 07/24/24 10:15 Temperature 97.9 F Pulse Rate 61 Respiratory Rate 18 Blood Pressure 131/89 Pulse Oximetry 98 Oxygen Delivery Room Air Exam Const: General: comfortable and no acute distress HENMT: Face/Nose/Sinus: Normal nares present Eyes: General: appearance normal, both eyes and all related structures Neck: Neck: no JVD Resp: Auscultation: clear to auscultation bilaterally Cardio: Rate: regular rate Rhythm: regular rhythm GI: Inspection: non-distended GI Palp: Yes Soft to palpation Skin: General skin exam: normal color Neuro: General: gait normal Speech: normal speech Extrem: General: normal to inspection Psych: Mental Status: mental status grossly normal Assessment and Plan Assessment and plan (1) 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
[2024-07-24 11:00] VITALS: BP 114/76; PULSE 60; RESP 21; O2SAT 96
[2024-07-24 11:10] VITALS: BP 124/68; PULSE 67; RESP 22; O2SAT 96
[2024-07-24 11:20] VITALS: BP 120/68; PULSE 62; RESP 19; O2SAT 98
== END 2024-07-24 11:28 | disposition home or self-care (01) ==
PROVIDERS: PCP Family Medicine; Referring Provider Family Medicine; Visit Provider Internal Medicine Gastroenterology
PROC: 0DJ08ZZ Inspection of Upper Intestinal Tract, Via Natural or Artificial Opening Endoscopic (ICD-10-PCS; CPT 43239; principal; 2024-07-24 14:45)
DX: K22.70 Barrett's esophagus without dysplasia (principal); K21.9 Gastro-esophageal reflux disease without esophagitis; K29.70 Gastritis, unspecified, without bleeding; K58.9 Irritable bowel syndrome, unspecified; E78.00 Pure hypercholesterolemia, unspecified; R73.01 Impaired fasting glucose; M19.90 Unspecified osteoarthritis, unspecified site; Z79.1 Long term (current) use of non-steroidal anti-inflammatories (NSAID); Z98.890 Other specified postprocedural states; Z90.49 Acquired absence of other specified parts of digestive tract; Z87.442 Personal history of urinary calculi; Z87.19 Personal history of other diseases of the digestive system; Z80.9 Family history of malignant neoplasm, unspecified; Z82.49 Family history of ischemic heart disease and other diseases of the circulatory system
CPT/HCPCS: 43239; 88305; J2704; J7120